=== PATIENT | female | born 1960 | race Caucasian/White ===

== ENCOUNTER 2023-01-24 19:14 | Emergency (ER) | payer BC ==
[~2023-01-24] VITALS: Ht 162.6 cm; Wt 106.6 kg
[2023-01-24 20:00] VITALS: BP_SYST 176; PULSE 81; RESP 20; TEMP 97.4; O2SAT 95
== END 2023-01-24 23:15 | disposition left against medical advice (07) ==
LOC: SED 19:14
DX: H57.11 Ocular pain, right eye (principal); Z53.21 Procedure and treatment not carried out due to patient leaving prior to being seen by health care provider
CPT/HCPCS: 99281